=== PATIENT | female | born 1955 | race Caucasian/White ===

== ENCOUNTER 2023-03-03 08:01 | Outpatient (CLI) | payer MEDICARE, OTHER, SELFPAY ==
[2023-03-03 08:55] LABS: Anion Gap 6 mmol/L (8-16); Blood Urea Nitrogen 13 mg/dL (7-17); Calcium 9.2 mg/dL (8.4-10.2); Carbon Dioxide 27 mmol/L (22-30); Chloride 106 mmol/L (98-107); Estimated Glomerular Filt Rate > 60; Glucose 100 mg/dL (65-110); Potassium 4.5 mmol/L (3.4-5.0); Sodium 139 mmol/L (137-145)
== END 2023-03-03 08:02 | disposition home or self-care (01) ==
LOC: ANHSURGERY 08:28
PROVIDERS: Anesthesiology; PCP Physician Assistant; Visit Provider Obstetrics & Gynecology Gynecology
DX: I10 Essential (primary) hypertension (principal); Z01.818 Encounter for other preprocedural examination
CPT/HCPCS: 36415; 80048

== ENCOUNTER 2023-03-07 01:28 | Day surgery (SDC) | payer MEDICARE, OTHER, SELFPAY ==
--- NOTE | 2023-03-02 15:39 | PC.NURSE ---
Report to the Outpatient Waiting Room, entrance under the green pavilion located off [facility], at time __0700 on date _03/07/23 . Planned Procedure Time: __0900 . Time changes happen often and if your time is changed the preop area will call you the afternoon before. - You and your visitor will be asked to self-screen and do not enter if you have any COVID symptoms. - A mask is optional within the hospital at this time. Patients may have clear liquids (water, carbonated beverages, clear teas, apple juice) until 3 hours prior to surgery( 6AM ) with a maximum of 20 ounces. - No food from midnight until time of surgery Take the following medications with a SIP of water the morning of surgery: ___BUPROPION DO NOT STOP ANY OF YOUR OTHER PRESCRIPTION MEDICATIONS PRIOR TO SURGERY ?EXCEPT THE FOLLOWING Medications to discontinue per physician ____ALL VITAMINS 3 DAYS PER OP.LAST DOSE 03/03/23 Please no make-up, nail uruguayan, hairspray, perfume, deodorant, or body powder the day of surgery. No jewelry (including any body piercings) or valuables the day of surgery, leave them at home. Please take a shower or bath the night before, or the morning of, surgery with an antibacterial soap. Wear comfortable, loose fitting clothing. Children are encouraged to wear pajamas. - Jewelry must be removed prior to entering the operating room. Rings and piercings that are not removed may be cut off. - The hospital will not accept responsibility for valuables. - Please leave all valuables, including medications, at home the day of surgery. If you are going home after surgery, a licensed piledriver carpenter must drive you home. - NO public transportation without another adult if you receive anesthesia. - We recommend that an adult stay with you for 24 hours following discharge. - We also recommend that you do not drive, make important decision, drink alcoholic beverages, or take any drugs that were not prescribed by your health care provider for at least 24 hours after your discharge time. For Pediatric surgeries, we recommend two adults accompany the child home. Follow any additional instructions given to you from your surgeon. If you or anyone in your household have experienced Covid symptoms in the past week, please notify your surgeon or the nurse liaison at the phone number below for possible testing. Telephone instructions given to __PATIENT and asked if any additional questions and then verbalized understanding. Patient advised to call surgeon office or pre surgery nurse liaison [phone] if any additional questions.
[2023-03-02 15:46] VITALS: BMI 29.1
[2023-03-07] MEDS: ACETAMINOPHEN 500 MG TABLET 1000 MG PO (07:30)
--- NOTE | 2023-03-07 07:38 | WPDHPUPDATE1 ---
History and Physical Update Update Date/Time: 03/07/23 07:38 History and Physical has been reviewed, including an updated exam of the patient. There are NO changes in the patient's condition. Risks, benefits, and alternatives have been discussed and questions answered. Patient agrees to proceed with procedure.
--- NOTE | 2023-03-07 07:38 | PM.HPGS ---
History of Present Illness History of Present Illness Consent: Risks, benefits, and alternatives have been discussed and questions answered. Patient agrees to proceed with procedure. Chief complaint: thickened endometrial lining Narrative: Dedra Finn is a 68 year old female with ultrasound showing a thickened endometrial lining. Patient denies vaginal bleeding. It was recommended to proceed with D&C hysteroscopy. Risks of infection, bleeding, perforation, and possible pathology are reviewed. Patient voices understanding and agrees to proceed. Review of Systems Review of Systems: not repeated day of surgery; patient states no changes in status PMFSH Past Medical History Medical History (Updated 03/07/23 @ 08:00 by Shanice Goodwin MD) Depression History of breast cancer History of retinal detachment status post surgery 2018 HTN (hypertension) (normal spontaneous vaginal delivery) x2 Scar of abdomen surgical revision 2014 Surgical History Surgical History (Updated 03/07/23 @ 07:59 by Shanice Goodwin MD) History of laparoscopic cholecystectomy Status post bilateral mastectomy 2013 with reconstruction with abdominal flap Status post hysteroscopic ablation of endometrium Paige 2004 Status post right cataract extraction Status post tubal ligation Social History Social History Years smoked: 10 Smoking status: Former smoker Tobacco type: cigarettes Smoking end date: 03/21/02 Alcohol intake: current Drinks per week: 2 Living arrangements: with family Spiritual care concerns: No Meds Home Medications and Allergies Home Medications Medication Instructions Recorded Confirmed Type bupropion HCl 300 mg 24 hr tablet, 300 mg PO DAILY 03/02/23 03/07/23 History extended release multivitamin (Daily Multi-Vitamin 1 tablet PO DAILY 03/02/23 03/07/23 History tablet) omega-3 fatty acids 1,000 mg PO DAILY 03/02/23 03/07/23 History sesame oil 1 ea miscellaneous DAILY 03/02/23 03/07/23 History spironolactone 25 mg tablet 25 mg PO DAILY 03/02/23 03/07/23 History Allergies Allergy/AdvReac Type Severity Reaction Status Date / Time codeine AdvReac Other Verified 03/07/23 07:28 iodine AdvReac Hives Verified 03/07/23 07:28 quinapril [From Accupril] AdvReac Cough Verified 03/07/23 07:28 Exam Const: General: healthy appearing and alert Orientation/consciousness: patient oriented x3 Resp: Effort & Inspection: normal respiratory effort GI: GI Palp: Yes Soft to palpation, No Tenderness to palpation present (GI) and No Palpable mass present : External Female Exam: normal external appearance Speculum Exam - Vagina: normal appearance of the vagina and normal vaginal discharge Speculum Exam - Cervix: normal appearance of the cervix Bimanual exam- vagina & uterus: uterine size normal and consistency normal Bimanual Exam- Adnexa, other: normal adnexae and No adnexal tenderness Neuro: General: patient oriented x3 Assessment and Plan Assessment and plan (1) Thickened endometrium: Code(s): R93.89 - Abnormal findings on diagnostic imaging of other specified body structures Status: Acute Assessment and Plan: plan to proceed with D&C hysteroscopy
[2023-03-07] MEDS: LACTATED RINGERS 1,000 ML 30 ML IV CONT (07:44)
[2023-03-07 07:45] VITALS: BP 150/83; PULSE 71; RESP 16; TEMP 36.4; O2SAT 100
--- NOTE | 2023-03-07 08:07 | P.PNAN_ITS ---
Anes - Initial Pre Proc Eval Procedure: Operation Date: 03/07/23 09:00 Proposed Procedures p Hysteroscopy, Dilation and Curettage - Shanice Goodwin MD Date/Time: 03/07/23 08:07 Surgeon: Shanice Goodwin MD Pre Op Diagnosis: thickened endometrial lining Patient Data Age: 68 Gender: F Height: 1.65 m Weight: 80 kg Last Vital Signs Temp 36.4 C 03/07/23 07:45 Pulse 71 03/07/23 07:45 Resp 16 03/07/23 07:45 BP 150/83 H 03/07/23 07:45 Pulse Ox 100 03/07/23 07:45 O2 Del Method Room Air 03/07/23 07:45 Allergies Allergy/AdvReac Type Severity Reaction Status Date / Time codeine AdvReac Other Verified 03/07/23 07:28 iodine AdvReac Hives Verified 03/07/23 07:28 quinapril [From Accupril] AdvReac Cough Verified 03/07/23 07:28 Home Medications Medication Instructions Recorded Confirmed Type bupropion HCl 300 mg 24 hr tablet, 300 mg PO DAILY 03/02/23 03/07/23 History extended release multivitamin (Daily Multi-Vitamin 1 tablet PO DAILY 03/02/23 03/07/23 History tablet) omega-3 fatty acids 1,000 mg PO DAILY 03/02/23 03/07/23 History sesame oil 1 ea miscellaneous DAILY 03/02/23 03/07/23 History spironolactone 25 mg tablet 25 mg PO DAILY 03/02/23 03/07/23 History Patient hx anesthesia problems: none Family hx anesthesia problems: none Results Review: All pre-operative results and documents have been reviewed as part of the pre- operative evaluation. [facility], LAT[facility] Past Medical History Medical History Depression History of breast cancer History of retinal detachment status post surgery 2018 HTN (hypertension) (normal spontaneous vaginal delivery) x2 Scar of abdomen surgical revision 2014 Surgical History Surgical History History of laparoscopic cholecystectomy Status post bilateral mastectomy 2013 with reconstruction with abdominal flap Status post hysteroscopic ablation of endometrium Paige 2004 Status post right cataract extraction Status post tubal ligation Social History Social History Years smoked: 10 Smoking status: Former smoker Tobacco type: cigarettes Smoking end date: 03/21/02 Alcohol intake: current Drinks per week: 2 Living arrangements: with family Spiritual care concerns: No Anes - Eval Final PreProcedure Day of Procedure 03/07/23 08:07 Patient weight: overweight Heart: regular rate and rhythm Lungs: clear to auscultation Airway: Mallampati scale class II Neurological: alert and oriented Last oral intake: >/= 8 hours ASA classification: III Emergent: no Anesthetic plan: proceed Anesthesia type and monitoring: general GIVS and standard monitoring Results Review: All pre-operative results and documents have been reviewed as part of the pre- operative evaluation. Informed Consent: The patient's anesthetic plan and its attendant risks and benefits were discussed with the patient/family/POA. Questions were solicited and answers provided to the satisfaction of the patient/family/POA.
[2023-03-07] MEDS: KETOROLAC 15 MG/ML VIAL (*BKC) IV PUSH (09:00)
--- NOTE | 2023-03-07 09:04 | W.PM.PROC2 ---
Procedure Note - Detailed Date of Procedure 03/07/23 Pre-op Diagnosis thickened endometrial lining Post-op Diagnosis Same Procedure Performed D&C hysteroscopy Surgeon Shanice Goodwin MD Anesthesia MAC Findings internal cervical stenosis; endometrium very scarred from prior ablation Description of Procedure The patient is taken to the operating room and placed under anesthesia in the dorsal lithotomy position. She was prepped and draped in usual sterile fashion. [place] speculum was placed in the vagina and the cervix grasped on the anterior lip with a tenaculum. The sound is attempted to be used and internal cervical stenosis is encountered. Os Finders are used and cervix is serially dilated to a 5 Hegar. The uterus is then sounded to 6cm. The diagnostic hysteroscope was placed in the endometrium was very scarred. The hysteroscope was removed and sharp curette used to curette the endometrium until a good uterine cry was noted in all areas. Minimal material was obtained consistent with the visual appearance. All instruments are removed. Patient is awakened from anesthesia and taken to recovery in stable condition. The sponge, needle, and instrument counts are correct per the OR staff. Estimated Blood Loss 5 Drains No Packing No Pathology Yes ( Endometrial curetting) Complications No immediate complications Condition Stable Disposition PACU
[2023-03-07 09:05] VITALS: BP 121/70; PULSE 66; RESP 12; O2SAT 94
[2023-03-07 09:35] VITALS: BP 124/71; PULSE 62; RESP 16; O2SAT 100
[2023-03-07 10:00] VITALS: BP 139/85; PULSE 65; RESP 16
== END 2023-03-07 10:05 | disposition home or self-care (01) ==
PROVIDERS: PCP Physician Assistant; Visit Provider Obstetrics & Gynecology Gynecology
PROC: 0U5B8ZZ Destruction of Endometrium, Via Natural or Artificial Opening Endoscopic (ICD-10-PCS; CPT 58563; principal; 2023-03-07 09:00)
DX: R93.89 Abnormal findings on diagnostic imaging of other specified body structures (principal); I10 Essential (primary) hypertension; F32.A Depression, unspecified; Z85.3 Personal history of malignant neoplasm of breast; Z87.891 Personal history of nicotine dependence
CPT/HCPCS: 58558; 88305; A9270; J1885; J2250; J2405; J2704; J7120